=== PATIENT | female | born 1975 | race Caucasian/White ===

== ENCOUNTER 2017-03-06 10:12 | Emergency (ER) | payer SELFPAY ==
[~2017-03-06] VITALS: Ht 160 cm; Wt 54.2 kg
[2017-03-06 10:39] VITALS: BP 120/69
== END 2017-03-06 12:41 | disposition left against medical advice (07) ==
LOC: EME 10:12
DX: L29.9 Pruritus, unspecified (principal); Z53.21 Procedure and treatment not carried out due to patient leaving prior to being seen by health care provider